=== PATIENT | female | born 1945 | race Caucasian/White ===

== ENCOUNTER 2017-07-04 12:47 | Emergency (ER) | payer MEDICARE, MEDICAID, OTHER ==
[2017-07-04] MEDS: ONDANSETRON (ODT) 4 MG TAB ODT (16:19)
[2017-07-04] MEDS: HYDROCODONE/APAP (5/325) TAB PO (16:19)
[2017-07-04 16:39] LABS: ADD MAN DIFF? NO
[2017-07-04 16:41] LABS: BASOPHILS % 0.8 % (0.0-2.0); EOSINOPHILS # 0.2 10^3/ul (0.0-0.5); HEMATOCRIT 36.2 % (37.0-47.0); HEMOGLOBIN 11.6 g/dl (12.0-16.0); LYMPHOCYTES # 1.3 10^3/ul (0.8-2.9); LYMPHOCYTES % 26.5 % (15.0-51.0); MEAN CORPUSCULAR HEMOGLOBIN 31.2 pg (29.0-33.0); MEAN CORPUSCULAR VOLUME 97.3 fl (82.0-101.0); MEAN PLATELET VOLUME 9.4 fl (7.4-10.4); MONOCYTE # 0.6 10^3/ul (0.3-0.9); MONOCYTES % 12.5 % (0.0-11.0); NEUTROPHIL # 2.9 10^3/ul (1.6-7.5); PLATELET COUNT 289 10^3/UL (140-415); RED BLOOD COUNT 3.72 10^6/ul (4.20-5.40); RED CELL DISTRIBUTION WIDTH 13.9 % (11.5-14.5)
[2017-07-04 16:41] LABS: WHITE BLOOD COUNT 5.1 10^3/ul (4.8-10.8)
[2017-07-04 17:15] LABS: ALANINE AMINOTRANSFERASE 28 IU/L (13-69); ALBUMIN 3.7 g/dl (3.3-4.9); ALBUMIN/GLOBULIN RATIO 0.84; ALKALINE PHOSPHATASE 101 IU/L (42-121); ANION GAP 13 (8-16); ASPARTATE AMINO TRANSFERASE 32 IU/L (15-46); BLOOD UREA NITROGEN 17 mg/dl (7-20); CALCIUM 8.8 mg/dl (8.4-10.2); CARBON DIOXIDE 21 mmol/L (21-31); CHLORIDE 112 mmol/L (97-110); CREATININE 1.04 mg/dl (0.44-1.00); GLUCOSE 72 mg/dl (70-220); SODIUM 142 mmol/L (135-144); TOTAL PROTEIN 8.1 g/dl (6.1-8.1)
[2017-07-04 17:45] LABS: ADD UMIC NO; UR ASCORBIC ACID NEGATIVE (NEGATIVE); UR BILIRUBIN (Dip) NEGATIVE (NEGATIVE); UR BLOOD (Dip) NEGATIVE (NEGATIVE); UR CLARITY CLEAR (CLEAR); UR COLOR STRAW (YELLOW); UR GLUCOSE (Dip) NEGATIVE (NEGATIVE); UR KETONES (Dip) NEGATIVE (NEGATIVE); UR LEUKOCYTE ESTERASE (Dip) NEGATIVE Leu/ul (NEGATIVE); UR NITRITE (Dip) NEGATIVE (NEGATIVE); UR SPECIFIC GRAVITY (Dip) 1.008 (1.003-1.030); UR TOTAL PROTEIN (Dip) NEGATIVE (NEGATIVE); UR UROBILINOGEN (Dip) NEGATIVE (NEGATIVE)
== END 2017-07-04 18:10 | disposition home or self-care (01) ==
LOC: FTE 12:47
DX: M25.552 Pain in left hip (principal); I10 Essential (primary) hypertension
CPT/HCPCS: 73510; 80053; 81003; 85025; 99284-25

== ENCOUNTER 2018-06-14 10:01 | Inpatient (IN) | payer OTHER, MEDICAID, MEDICARE ==
[2018-06-14] MEDS: ONDANSETRON 4 MG INJ IV (10:59)
[2018-06-14] MEDS: SOD CHLORIDE 0.9% 1,000 ML IV ×2 (10:59→15:48)
[2018-06-14] MEDS: morphine 4 MG/ML VIAL IV (11:00)
[2018-06-14 11:08] LABS: ADD MAN DIFF? NO
[2018-06-14 11:12] LABS: BASOPHILS % 0.4 % (0.0-2.0); EOSINOPHILS # 0.1 10^3/ul (0.0-0.5); EOSINOPHILS % 0.8 % (0.0-7.0); HEMOGLOBIN 11.3 g/dl (12.0-16.0); LYMPHOCYTES # 0.8 10^3/ul (0.8-2.9); MEAN CORPUSCULAR HGB CONC 32.3 g/dl (32.0-37.0); MEAN CORPUSCULAR VOLUME 92.8 fl (82.0-101.0); MEAN PLATELET VOLUME 9.4 fl (7.4-10.4); MONOCYTES % 9.4 % (0.0-11.0); NEUTROPHIL # 8.5 10^3/ul (1.6-7.5); PLATELET COUNT 323 10^3/UL (140-415); RED BLOOD COUNT 3.77 10^6/ul (4.20-5.40); RED CELL DISTRIBUTION WIDTH 13.8 % (11.5-14.5)
[2018-06-14 11:12] LABS: WHITE BLOOD COUNT 10.5 10^3/ul (4.8-10.8)
[2018-06-14 11:30] LABS: ADD UMIC YES; UR ASCORBIC ACID NEGATIVE (NEGATIVE); UR BILIRUBIN (Dip) NEGATIVE (NEGATIVE); UR BLOOD (Dip) NEGATIVE (NEGATIVE); UR CLARITY CLEAR (CLEAR); UR COLOR YELLOW (YELLOW); UR GLUCOSE (Dip) NEGATIVE (NEGATIVE); UR KETONES (Dip) NEGATIVE (NEGATIVE); UR LEUKOCYTE ESTERASE (Dip) NEGATIVE Leu/ul (NEGATIVE); UR NITRITE (Dip) NEGATIVE (NEGATIVE); UR RBC 0 /HPF (0-5); UR SPECIFIC GRAVITY (Dip) 1.017 (1.003-1.030); UR TOTAL PROTEIN (Dip) 1+ mg/dl (NEGATIVE); UR UROBILINOGEN (Dip) 1+ mg/dL (NEGATIVE); UR WBC 1 /HPF (0-5)
[2018-06-14 11:35] LABS: ALANINE AMINOTRANSFERASE 100 IU/L (13-69); ALBUMIN 3.6 g/dl (3.3-4.9); ALBUMIN/GLOBULIN RATIO 0.87; ALKALINE PHOSPHATASE 169 IU/L (42-121); ANION GAP 9 (5-13); ASPARTATE AMINO TRANSFERASE 217 IU/L (15-46); BILIRUBIN,INDIRECT 0.2 mg/dl (0-1.1); BILIRUBIN,TOTAL 0.8 mg/dl (0.2-1.3); BLOOD UREA NITROGEN 21 mg/dl (7-20); CALCIUM 8.6 mg/dl (8.4-10.2); CARBON DIOXIDE 21 mmol/L (21-31); CHLORIDE 110 mmol/L (97-110); CREATININE 1.12 mg/dl (0.44-1.00); GLUCOSE 104 mg/dl (70-220); POTASSIUM 3.9 mmol/L (3.5-5.1); SODIUM 140 mmol/L (135-144); TOTAL PROTEIN 7.7 g/dl (6.1-8.1)
[2018-06-14 11:46] LABS: TROPONIN-I < 0.012 ng/ml (0.000-0.120)
[2018-06-14 12:25] LABS: LIPASE 87218 U/L (23-300)
[2018-06-14] MEDS ORDERED: ACETAMINOPHEN 650 MG SUPP PR (13:00)
[2018-06-14] MEDS ORDERED: ACETAMINOPHEN 325 MG TAB PO (13:00)
[2018-06-14] MEDS ORDERED: ONDANSETRON 4 MG INJ IV (13:00)
[2018-06-14] MEDS ORDERED: morphine 2 MG INJ IV (13:00)
[2018-06-14] MEDS ORDERED: hydrALAzine 20 MG INJ IV (13:00)
[2018-06-14] MEDS ORDERED: NACL 0.9% 3 ML SYG IV (13:00)
[2018-06-14] MEDS: CIPROFLOXACIN 400MG/D5W 200 ML IVPB ×2 (13:13→20:35)
[2018-06-14 14:16] LABS: CHOLESTEROL 139 mg/dl (100-200)
[2018-06-14 14:16] LABS: CHOL/HDL RATIO 4.4 RATIO; HDL CHOLESTEROL 31 mg/dl (33-92); LDL CHOLESTEROL,CALCULATED 93 mg/dl; TRIGLYCERIDES 75 mg/dl (0-149)
[2018-06-14] MEDS: metroNIDAZOLE 500 MG/NS (PMX) 100 ML IVPB ×2 (15:47→22:03)
[2018-06-14] MEDS: HYDROmorphONE 1 MG/ML SYG IV (15:57)
[2018-06-14] MEDS: AL HYDROX/MG HYDROX/SIMETH 30 ML CUP PO (22:03)
[2018-06-15] MEDS: SOD CHLORIDE 0.9% 1,000 ML IV ×5 (02:14→19:27)
[2018-06-15] MEDS: metroNIDAZOLE 500 MG/NS (PMX) 100 ML IVPB ×2 (05:37→14:48)
[2018-06-15] MEDS: PANTOPRAZOLE 40 MG INJ IV (05:37)
[2018-06-15 06:10] LABS: ADD MAN DIFF? NO
[2018-06-15 06:28] LABS: WHITE BLOOD COUNT 8.8 10^3/ul (4.8-10.8)
[2018-06-15 06:28] LABS: BASOPHILS % 0.2 % (0.0-2.0); EOSINOPHILS % 0.2 % (0.0-7.0); HEMATOCRIT 32.8 % (37.0-47.0); HEMOGLOBIN 10.5 g/dl (12.0-16.0); LYMPHOCYTES # 0.9 10^3/ul (0.8-2.9); LYMPHOCYTES % 9.7 % (15.0-51.0); MEAN CORPUSCULAR VOLUME 93.7 fl (82.0-101.0); MEAN PLATELET VOLUME 10.2 fl (7.4-10.4); MONOCYTE # 0.8 10^3/ul (0.3-0.9); MONOCYTES % 9.4 % (0.0-11.0); PLATELET COUNT 319 10^3/UL (140-415); RED CELL DISTRIBUTION WIDTH 14.2 % (11.5-14.5)
[2018-06-15 06:51] LABS: HEMOGLOBIN A1C 5.3 % (0-5.9)
[2018-06-15 06:53] LABS: ALANINE AMINOTRANSFERASE 100 IU/L (13-69); ALBUMIN 2.9 g/dl (3.3-4.9); ALBUMIN/GLOBULIN RATIO 0.82; ALKALINE PHOSPHATASE 149 IU/L (42-121); ANION GAP 8 (5-13); ASPARTATE AMINO TRANSFERASE 136 IU/L (15-46); BILIRUBIN,INDIRECT 0.2 mg/dl (0-1.1); BILIRUBIN,TOTAL 0.2 mg/dl (0.2-1.3); BLOOD UREA NITROGEN 13 mg/dl (7-20); CARBON DIOXIDE 19 mmol/L (21-31); CHLORIDE 114 mmol/L (97-110); CREATININE 0.81 mg/dl (0.44-1.00); GLUCOSE 76 mg/dl (70-220); MAGNESIUM 1.9 mg/dl (1.7-2.5); SODIUM 141 mmol/L (135-144); TOTAL PROTEIN 6.4 g/dl (6.1-8.1)
[2018-06-15] MEDS: CIPROFLOXACIN 400MG/D5W 200 ML IVPB (09:19)
[2018-06-15] MEDS: HYDROCODONE/APAP (5/325) TAB PO (09:58)
[2018-06-15] MEDS ORDERED: VITAMIN A & D 5 GM OINT PACKET TOP (11:27)
[2018-06-15] MEDS: HYDROmorphONE 1 MG/ML SYG IV (11:32)
[2018-06-15] MEDS: ONDANSETRON 4 MG INJ IV (11:32)
[2018-06-15] MEDS ORDERED: ALBUTEROL 0.083% (NEB) 2.5 MG/3 ML AMP HHN (14:00)
[2018-06-15] MEDS: ALBUTEROL 0.083% (NEB) 2.5 MG/3 ML AMP HHN ×2 (14:54→20:56)
[2018-06-15] MEDS: METOCLOPRAMIDE 10 MG INJ IV (17:14)
[2018-06-16] MEDS: SOD CHLORIDE 0.9% 1,000 ML IV (02:12)
[2018-06-16] MEDS: PANTOPRAZOLE 40 MG INJ IV (05:40)
[2018-06-16] MEDS: HYDROmorphONE 1 MG/ML SYG IV (05:50)
[2018-06-16] MEDS: ONDANSETRON 4 MG INJ IV (05:50)
[2018-06-16 06:06] LABS: ADD MAN DIFF? NO
[2018-06-16 06:12] LABS: WHITE BLOOD COUNT 13.6 10^3/ul (4.8-10.8)
[2018-06-16 06:12] LABS: BASOPHILS % 0.3 % (0.0-2.0); HEMATOCRIT 32.4 % (37.0-47.0); HEMOGLOBIN 10.2 g/dl (12.0-16.0); LYMPHOCYTES % 7.1 % (15.0-51.0); MEAN CORPUSCULAR HEMOGLOBIN 29.8 pg (29.0-33.0); MEAN CORPUSCULAR HGB CONC 31.5 g/dl (32.0-37.0); MEAN CORPUSCULAR VOLUME 94.7 fl (82.0-101.0); MONOCYTE # 1.1 10^3/ul (0.3-0.9); MONOCYTES % 8.2 % (0.0-11.0); NEUTROPHIL # 11.4 10^3/ul (1.6-7.5); NEUTROPHILS % 83.7 % (39.0-77.0); PLATELET COUNT 300 10^3/UL (140-415); RED BLOOD COUNT 3.42 10^6/ul (4.20-5.40); RED CELL DISTRIBUTION WIDTH 14.4 % (11.5-14.5)
[2018-06-16 06:40] LABS: IRON 22 ug/dl (35-150)
[2018-06-16 06:50] LABS: % IRON SATURATION 8 % SAT (22-52); TOTAL IRON BINDING CAPACITY 280 ug/dl (241-421)
[2018-06-16 06:52] LABS: ALANINE AMINOTRANSFERASE 67 IU/L (13-69); ALBUMIN/GLOBULIN RATIO 0.88; ALKALINE PHOSPHATASE 140 IU/L (42-121); ANION GAP 15 (5-13); ASPARTATE AMINO TRANSFERASE 76 IU/L (15-46); BLOOD UREA NITROGEN 14 mg/dl (7-20); CALCIUM 8.4 mg/dl (8.4-10.2); CARBON DIOXIDE 13 mmol/L (21-31); CHLORIDE 115 mmol/L (97-110); CREATININE 0.89 mg/dl (0.44-1.00); GLUCOSE 58 mg/dl (70-220); LIPASE 1125 U/L (23-300); MAGNESIUM 1.9 mg/dl (1.7-2.5); SODIUM 143 mmol/L (135-144); TOTAL PROTEIN 6.4 g/dl (6.1-8.1)
[2018-06-16] MEDS: ALBUTEROL 0.083% (NEB) 2.5 MG/3 ML AMP HHN ×3 (08:22→19:29)
[2018-06-16] MEDS: DEXTROSE 5%-0.45% NACL 1,000 ML IV ×2 (09:18→21:10)
[2018-06-16] MEDS: SOD FERRIC GLUC COMPLX 125 MG in SOD CHLORIDE 0.9% 100 ML IVPB (11:22)
[2018-06-16] MEDS: SODIUM BICARBONATE (IV ADD) 50 MEQ in DEXTROSE 5% 1,000 ML IV (13:14)
[2018-06-16] MEDS: HYDROCODONE/APAP (5/325) TAB PO (21:08)
[2018-06-17] MEDS ORDERED: NAPHAZOLINE 0.012% 15 ML OPH BOTH EYES (00:30)
[2018-06-17] MEDS: POLYETHYLENE GLYCOL 17 GM PACKET GTB ×2 (00:30→09:29)
[2018-06-17] MEDS: DOCUSATE SODIUM 100 MG CAP PO ×3 (02:03→20:10)
[2018-06-17] MEDS: ARTIFICIAL TEARS 15 ML OPH BOTH EYES (02:04)
[2018-06-17] MEDS: SODIUM BICARBONATE (IV ADD) 50 MEQ in DEXTROSE 5% 1,000 ML IV (05:00)
[2018-06-17 05:45] LABS: ADD MAN DIFF? NO
[2018-06-17] MEDS: PANTOPRAZOLE 40 MG INJ IV (05:48)
[2018-06-17 05:53] LABS: WHITE BLOOD COUNT 13.8 10^3/ul (4.8-10.8)
[2018-06-17 05:53] LABS: BASOPHILS % 0.1 % (0.0-2.0); EOSINOPHILS # 0.1 10^3/ul (0.0-0.5); EOSINOPHILS % 0.6 % (0.0-7.0); HEMATOCRIT 30.8 % (37.0-47.0); HEMOGLOBIN 10.2 g/dl (12.0-16.0); LYMPHOCYTES # 0.9 10^3/ul (0.8-2.9); LYMPHOCYTES % 6.7 % (15.0-51.0); MEAN CORPUSCULAR HEMOGLOBIN 30.5 pg (29.0-33.0); MEAN CORPUSCULAR HGB CONC 33.1 g/dl (32.0-37.0); MEAN CORPUSCULAR VOLUME 92.2 fl (82.0-101.0); MEAN PLATELET VOLUME 9.8 fl (7.4-10.4); MONOCYTES % 7.2 % (0.0-11.0); NEUTROPHIL # 11.7 10^3/ul (1.6-7.5); NEUTROPHILS % 84.7 % (39.0-77.0); PLATELET COUNT 277 10^3/UL (140-415); RED BLOOD COUNT 3.34 10^6/ul (4.20-5.40); RED CELL DISTRIBUTION WIDTH 14.2 % (11.5-14.5)
[2018-06-17 06:24] LABS: ALANINE AMINOTRANSFERASE 54 IU/L (13-69); ALBUMIN 2.8 g/dl (3.3-4.9); ALBUMIN/GLOBULIN RATIO 0.84; ALKALINE PHOSPHATASE 121 IU/L (42-121); ANION GAP 8 (5-13); ASPARTATE AMINO TRANSFERASE 47 IU/L (15-46); BILIRUBIN,INDIRECT 0.1 mg/dl (0-1.1); BILIRUBIN,TOTAL 0.1 mg/dl (0.2-1.3); BLOOD UREA NITROGEN 10 mg/dl (7-20); CALCIUM 8.3 mg/dl (8.4-10.2); CARBON DIOXIDE 19 mmol/L (21-31); CHLORIDE 110 mmol/L (97-110); CREATININE 0.76 mg/dl (0.44-1.00); GLUCOSE 144 mg/dl (70-220); LIPASE 363 U/L (23-300); POTASSIUM 3.4 mmol/L (3.5-5.1); SODIUM 137 mmol/L (135-144); TOTAL PROTEIN 6.1 g/dl (6.1-8.1)
[2018-06-17] MEDS: ALBUTEROL 0.083% (NEB) 2.5 MG/3 ML AMP HHN ×3 (09:00→19:31)
[2018-06-17] MEDS: HYDROCODONE/APAP (5/325) TAB PO (09:34)
[2018-06-17] MEDS: POTASSIUM CHLORIDE 100 ML IVPB ×2 (12:50→15:13)
[2018-06-17] MEDS: DEXTROSE 5%-0.45% NACL 1,000 ML IV ×2 (12:51→23:33)
[2018-06-17] MEDS ORDERED: VITAMIN A & D 5 GM OINT PACKET TOP (16:46)
[2018-06-17] MEDS: AL HYDROX/MG HYDROX/SIMETH 30 ML CUP PO (22:21)
[2018-06-18] MEDS: DEXTROSE 5%-0.45% NACL 1,000 ML IV ×3 (02:53→14:00)
[2018-06-18] MEDS: PANTOPRAZOLE 40 MG INJ IV (05:22)
[2018-06-18 05:30] LABS: ADD MAN DIFF? NO
[2018-06-18 05:35] LABS: BASOPHILS % 0.4 % (0.0-2.0); EOSINOPHILS # 0.3 10^3/ul (0.0-0.5); HEMATOCRIT 30.1 % (37.0-47.0); HEMOGLOBIN 9.9 g/dl (12.0-16.0); LYMPHOCYTES # 0.9 10^3/ul (0.8-2.9); LYMPHOCYTES % 8.9 % (15.0-51.0); MEAN CORPUSCULAR HEMOGLOBIN 30.2 pg (29.0-33.0); MEAN CORPUSCULAR HGB CONC 32.9 g/dl (32.0-37.0); MEAN CORPUSCULAR VOLUME 91.8 fl (82.0-101.0); MEAN PLATELET VOLUME 9.6 fl (7.4-10.4); MONOCYTE # 0.8 10^3/ul (0.3-0.9); MONOCYTES % 8.4 % (0.0-11.0); NEUTROPHIL # 7.6 10^3/ul (1.6-7.5); NEUTROPHILS % 78.8 % (39.0-77.0); PLATELET COUNT 296 10^3/UL (140-415); RED BLOOD COUNT 3.28 10^6/ul (4.20-5.40); RED CELL DISTRIBUTION WIDTH 14.3 % (11.5-14.5)
[2018-06-18 05:35] LABS: WHITE BLOOD COUNT 9.6 10^3/ul (4.8-10.8)
[2018-06-18 06:18] LABS: ALANINE AMINOTRANSFERASE 44 IU/L (13-69); ALBUMIN 2.7 g/dl (3.3-4.9); ALBUMIN/GLOBULIN RATIO 0.79; ALKALINE PHOSPHATASE 119 IU/L (42-121); ANION GAP 3 (5-13); ASPARTATE AMINO TRANSFERASE 43 IU/L (15-46); BILIRUBIN,INDIRECT 0.2 mg/dl (0-1.1); BILIRUBIN,TOTAL 0.2 mg/dl (0.2-1.3); BLOOD UREA NITROGEN 5 mg/dl (7-20); CALCIUM 8.4 mg/dl (8.4-10.2); CARBON DIOXIDE 21 mmol/L (21-31); CHLORIDE 114 mmol/L (97-110); CREATININE 0.74 mg/dl (0.44-1.00); GLUCOSE 109 mg/dl (70-220); LIPASE 390 U/L (23-300); POTASSIUM 4.2 mmol/L (3.5-5.1); SODIUM 138 mmol/L (135-144); TOTAL PROTEIN 6.1 g/dl (6.1-8.1)
[2018-06-18] MEDS: ALBUTEROL 0.083% (NEB) 2.5 MG/3 ML AMP HHN ×3 (08:47→20:15)
[2018-06-18] MEDS: DOCUSATE SODIUM 100 MG CAP PO ×2 (09:10→20:23)
[2018-06-18] MEDS: POLYETHYLENE GLYCOL 17 GM PACKET PO (09:11)
[2018-06-18] MEDS: HYDROCODONE/APAP (5/325) TAB PO (09:12)
[2018-06-18] MEDS ORDERED: GUAIFENESIN 20 MG/ML 5ML CUP PO (11:00)
[2018-06-18] MEDS ORDERED: VITAMIN A & D 5 GM OINT PACKET TOP (12:05)
[2018-06-18] MEDS: FERROUS SULFATE (EC) 325 MG TAB PO (12:08)
[2018-06-18] MEDS: GUAIFENESIN/DM (SR) TAB PO ×2 (12:08→20:23)
[2018-06-18] MEDS: ARTIFICIAL TEARS 15 ML OPH BOTH EYES (12:08)
[2018-06-19] MEDS: DEXTROSE 5%-0.45% NACL 1,000 ML IV (02:50)
[2018-06-19] MEDS: PANTOPRAZOLE (EC) 40 MG TAB PO (05:07)
[2018-06-19 06:08] LABS: ADD MAN DIFF? NO
[2018-06-19 06:19] LABS: WHITE BLOOD COUNT 8.1 10^3/ul (4.8-10.8)
[2018-06-19 06:19] LABS: BASOPHIL # 0.1 10^3/ul (0.0-0.1); BASOPHILS % 0.6 % (0.0-2.0); EOSINOPHILS # 0.3 10^3/ul (0.0-0.5); EOSINOPHILS % 4.2 % (0.0-7.0); HEMATOCRIT 29.4 % (37.0-47.0); HEMOGLOBIN 9.9 g/dl (12.0-16.0); LYMPHOCYTES # 1.2 10^3/ul (0.8-2.9); LYMPHOCYTES % 14.6 % (15.0-51.0); MEAN CORPUSCULAR HEMOGLOBIN 30.4 pg (29.0-33.0); MEAN CORPUSCULAR HGB CONC 33.7 g/dl (32.0-37.0); MEAN CORPUSCULAR VOLUME 90.2 fl (82.0-101.0); MEAN PLATELET VOLUME 9.9 fl (7.4-10.4); MONOCYTE # 1.1 10^3/ul (0.3-0.9); MONOCYTES % 12.9 % (0.0-11.0); NEUTROPHIL # 5.5 10^3/ul (1.6-7.5); NEUTROPHILS % 67.2 % (39.0-77.0); PLATELET COUNT 325 10^3/UL (140-415); RED BLOOD COUNT 3.26 10^6/ul (4.20-5.40); RED CELL DISTRIBUTION WIDTH 14.6 % (11.5-14.5)
[2018-06-19 06:56] LABS: ALANINE AMINOTRANSFERASE 35 IU/L (13-69); ALBUMIN 2.8 g/dl (3.3-4.9); ALBUMIN/GLOBULIN RATIO 0.82; ALKALINE PHOSPHATASE 115 IU/L (42-121); ANION GAP 4 (5-13); ASPARTATE AMINO TRANSFERASE 35 IU/L (15-46); BILIRUBIN,INDIRECT 0.1 mg/dl (0-1.1); BILIRUBIN,TOTAL 0.1 mg/dl (0.2-1.3); BLOOD UREA NITROGEN 6 mg/dl (7-20); CALCIUM 8.5 mg/dl (8.4-10.2); CARBON DIOXIDE 24 mmol/L (21-31); CHLORIDE 113 mmol/L (97-110); CREATININE 0.79 mg/dl (0.44-1.00); GLUCOSE 106 mg/dl (70-220); POTASSIUM 4.6 mmol/L (3.5-5.1); SODIUM 141 mmol/L (135-144); TOTAL PROTEIN 6.2 g/dl (6.1-8.1)
[2018-06-19] MEDS: DOCUSATE SODIUM 100 MG CAP PO (08:04)
[2018-06-19] MEDS: GUAIFENESIN/DM (SR) TAB PO (08:04)
[2018-06-19] MEDS: POLYETHYLENE GLYCOL 17 GM PACKET PO (08:04)
[2018-06-19] MEDS: FERROUS SULFATE (EC) 325 MG TAB PO (08:04)
[2018-06-19] MEDS: ALBUTEROL 0.083% (NEB) 2.5 MG/3 ML AMP HHN (08:53)
== END 2018-06-19 14:30 | disposition home health service (06) | DRG 439 ==
LOC: E/R 10:01 → 2NE 12:54
DX: K85.90 Acute pancreatitis without necrosis or infection, unspecified (principal); N17.9 Acute kidney failure, unspecified; M25.511 Pain in right shoulder; N28.1 Cyst of kidney, acquired; D50.9 Iron deficiency anemia, unspecified; Z85.528 Personal history of other malignant neoplasm of kidney; N20.0 Calculus of kidney; K46.9 Unspecified abdominal hernia without obstruction or gangrene; I10 Essential (primary) hypertension; K21.9 Gastro-esophageal reflux disease without esophagitis; J44.9 Chronic obstructive pulmonary disease, unspecified
CPT/HCPCS: 36415; 73030-RT; 73130-RT; 73560; 74176; 74181; 76705; 80053; 80061; 81001; 82787; 83036; 83540; 83690; 83735; 84484; 85025; 93005; 93971; 94640; 94664; 96374; 96375; 97116; 97162; 97167; 97530; 99285-25

== ENCOUNTER 2019-03-05 07:10 | Day surgery (SDC) | payer OTHER, BC ==
[2019-03-05] MEDS ORDERED: LIDOCAINE 2% (SDV) 5 ML INJ (07:41)
[2019-03-05] MEDS ORDERED: PROPOFOL 60 ML (07:41)
== END 2019-03-05 14:06 | disposition home or self-care (01) ==
LOC: GIL 07:10
DX: K64.9 Unspecified hemorrhoids (principal); Z86.010 Personal history of colon polyps
CPT/HCPCS: 43239; 88305; 88312